=== PATIENT | male | born 1980 | race Caucasian/White ===

== ENCOUNTER 2016-10-22 11:09 | Inpatient (IN) | payer BC ==
[~2016-10-22] VITALS: Ht 188 cm; Wt 131.5 kg
--- NOTE | 2016-10-22 11:20 | NUR ---
PT C/O "FLU" SYMPTOMS. PT PRESENTS PROFUSELY DIAPHORETIC AND REPORTS HEADACHE, GENERALIZED BODY ACHES, SOB, DIZZINESS WITH SYNCOPE, COUGH, VOMITING/DIARRHEA, AND INTERMITTENT FEVERS. PT REPORTS SYMPTOMS X1WK. PT IS AAOX4, FOLLWOS COMMANDS, ANSWERS QUESTIONS APPROPRIATELY. HOWEVER PT STS THAT HE IS HAVING A DIFFICULTY TIME ANSWERING QUESTIONS, STS THAT HE IS DISORIENTED AND THAT HIS BRAIN FEELS LIKE "MUSH". RESP EVEN AND UNLABORED, RA. LS CTA [place]. SPEAKING IN FULL SENTENSES. REPORTS COUGHING AND STS THAT HE UNABLE TO COUGH AT THIS TIME DUE SKIP HEADACHE. PT ALSO REPORTS SYNCOPE FOR < 1 SEC WHEN COUGHING HARD. PT ALSO REPORTS DIZZINESS. PT REPORTS INTTERMITTENT FEVERS WITH HIGHEST BEING 102. PT REPORTS VOMITING X1 AND DIARRHEA X3/DAY FOR 1 WK. PT DENIES CHEST PAIN, DENIES ABD PAIN. PT ALSO REPORTS SWEATING BEGAN TODAY AFTER TAKING IBUPROFEN
--- NOTE | 2016-10-22 11:24 | NUR ---
DR SANZ AT BEDSIDE FOR MSE
--- NOTE | 2016-10-22 11:30 | NUR ---
EMT AT BEDSIDE FOR EKG\
--- NOTE | 2016-10-22 11:32 | NUR ---
SIZING MACHINE AND DRIER OPERATOR AT BEDSIDE FOR BLOOD DRAW
[2016-10-22 11:46] LABS: BASOPHIL % 0.6 % (0-2); PLATELET COUNT 212 x10^3mcL (130-400); RED CELL DISTRIBUTION WIDTH 13.7 % (11.5-14.5)
--- NOTE | 2016-10-22 12:00 | NUR ---
PT BRIANA VALDERRAMA FOR CT SCAN
[2016-10-22 12:05] LABS: ALBUMIN 3.4 g/dL (3.4-5.0); ALKALINE PHOSPHATASE 96 U/L (46-116); ALT/SGPT 81 U/L (16-63); AST/SGOT 45 U/L (15-37); BILIRUBIN TOTAL 0.8 mg/dL (0.20-1.00); CALCIUM 8.8 mg/dL (8.5-10.1); CARBON DIOXIDE 29.3 mmol/L (21-32); CHLORIDE SERUM 100 mmol/L (98-107); CREATININE SERUM 1.3 mg/dL (0.7-1.3); GFR1 > 60 mL/min; GLUCOSE SERUM 109 mg/dL (74-106); POTASSIUM SERUM 3.2 mmol/L (3.5-5.1); SODIUM SERUM 137 mmol/L (136-145); TOTAL PROTEIN, SERUM 7.8 g/dL (6.4-8.2)
--- NOTE | 2016-10-22 12:07 | NUR ---
RADIOLOGY AT BEDSIDE FOR PCXR
--- NOTE | 2016-10-22 12:41 | NUR ---
DR SANZ AT BEDSIDE DICUSSING PERFORMING A LUMBAR PUNCTURE. PT AGREEABLE AND GIVES VERBAL CONSENT. DR SANZ INFORMS PT ABOUT PROCEDURE AND INCLUDING POSSIBLE RISK AND CONSEQUENCES, AND BENIFITS AND PURPOSE OF PROCEDURE. PT AGREEABLE AND VERBALIZES UNDERSTANDING
--- NOTE | 2016-10-22 12:48 | NUR ---
DR SANZ AT [facility] FOR LUNBAR PUNCTURE
--- NOTE | 2016-10-22 12:48 | NUR ---
PT SIGNED CONSENT FOR LUNBAR PUNCTURE
[2016-10-22 13:29] LABS: TOTAL PROTEIN CSF 26.7 mg/dL (15-45)
--- NOTE | 2016-10-22 13:50 | NUR ---
PT MADE AWARE THAT HE NEEDS TO PROVIDE URINE SAMPLE BEFORE DX, PT VERBALIZED UNDERSTANDING.
[2016-10-22 14:05] LABS: COLOR CSF COLORLESS
[2016-10-22 14:06] LABS: APPEARANCE CSF CLEAR; RBC CSF 2 /cumm (0); WBC CSF 11 /cumm (0-5)
[2016-10-22 14:07] LABS: APPEARANCE CSF CLEAR; COLOR CSF COLORLESS; RBC CSF 2 /cumm (0); WBC CSF 2 /cumm (0-5)
--- NOTE | 2016-10-22 14:20 | NUR ---
DR SANZ AT BEDSIDE TO DISCUSS PLAN OF CARE.
--- NOTE | 2016-10-22 15:28 | NUR ---
REPORT GIVE TO SOPHIA DRIVER IN [facility] FOR CONTINUITY OF CARE
--- NOTE | 2016-10-22 15:41 | NUR ---
PT STS THAT HE COLD. ORAL TEMP CHECKED, 99.0. WARM BLANKET GIVEN. VS STABLE. DR SANZ MADE AWARE OF PT FEELING COLD
--- NOTE | 2016-10-22 15:43 | NUR ---
AWAITING ADMISSION ORDERS
--- NOTE | 2016-10-22 16:00 | NUR ---
RECEIVED PT FROM ED VIA [employer], PT IS AAOX4. C/O 10/10 HEADACHE AND DIZZINESS. C/O STIFF NECK, BUT PT IS ABLE TO MOVE HEAD FROM SIDE TO SIDE. C/O LIGHT SENSITIVITY. C/O 10/10 CHEST PAIN, ABDOMINAL PAIN AND GENERALIZED BODY PAIN DESCRIBED ACHING, STATED THAT THE COLD MAKES THE PAIN WORSE. NOTED PT HAS BODY SHIVERING. C/O NAUSEA AND STATED THAT HE HAD DIARRHEAL EPISODE YESTERDAY. C/O POOR APPETITE FOR 1 WEEK, SORE TONGUE, THROAT AND EYES. NO REDNESS ON THE EYES NOTED. FVJT=511.7, DR. MEEK AT BEDSIDE AND WAS MADE AWARE. SIDE RAILS UPX2. CALL LIGHT ON REACH. PRIMARY NURSE SOPHIA AT BEDSIDE
[2016-10-22 16:28] VITALS: BP 158/94
--- NOTE | 2016-10-22 16:33 | NUR ---
PT WITH TEMP 102.7 AND C/O GEN BODY SORENESS, GIVEN TORADOL ORDERED. PT REFUSED ICE PACKS FOR COOLING MEASURES, GIVEN ICE CHIPS AND COLD WATER. DR. MEEK AT BEDSIDE AND AWARE. WILL CONTINUE TO MONITOR.
[2016-10-22 16:34] VITALS: Ht 188 cm; Wt 131.5 kg
[2016-10-22 16:59] LABS: PHOSPHOROUS 3.1 mg/dL (2.5-4.9)
[2016-10-22 17:00] LABS: CHOLESTEROL/HDL RATIO 7.3
[2016-10-22 17:01] LABS: T3 TOTAL 1.17 ng/mL
[2016-10-22 17:05] LABS: FREE T4 1.21 ng/dL (0.76-1.46); FREE THYROXINE INDEX 3.2 ug/dL (1.4-4.5); T4(THYROXINE) 10.1 ug/dL (4.7-13.3)
--- NOTE | 2016-10-22 18:51 | NUR ---
PT RESTING COMFORTABLY IN BED WITH EYES CLOSED. NO ACUTE DISTRESS NOTED. COOLING MEASURES FOR ELEVATED TEMPERATURE. SEIZURE PRECAUTIONS IN PLACE. NO PAIN NOTED AT THIS TIME. IVF INFUSING. PLACED ON DROPLET PRECAUTIONS. BED IN LOWEST POSITION. CALL LIGHT WITHIN REACH. WILL ENDORSE TO ONCOMING SHIFT.
--- NOTE | 2016-10-22 20:03 | NUR ---
RECEIVED PT FROM AM NURSE IN NO ACUTE DISTRESS. A/OX4. C/O STIFF NECK AND LIGHT SENSITIVITY. TELE #5 ST. DENIES CHEST PAIN OR DISCOMFORT. PULSES PALPABLE AND EVEN. NO EDEMA NOTED. LUNGS CLEAR ON RA. BS ACTIVE X4 QUADRANTS. REPORTS LOOSE STOOL. VOIDS FREELY. GENERALIZED WEAKNESS, SHIVERING NOTED. ABRASION TO BRIDGE OF NOSE, PROFESSOR OF FINANCE. C/O GENERALIZED SORENESS, WILL MEDICATE PER EMAR. IV INTACT AND PATENT TO L HAND. BED IN LOWEST POSITION. CALL LIGHT INSTRUCTIONS REINFORCED. WILL CONT TO MONITOR.
[2016-10-22 20:42] VITALS: BP 111/75
[2016-10-22 21:48] LABS: UA SPECIFIC GRAVITY >=1.030 (1.005-1.035); microscopic required? YES; urine erythrocyte NEGATIVE (NEGATIVE)
[2016-10-22 21:59] LABS: AMPHETAMINE QUAL UR POSITIVE (NEG <=1000)
--- NOTE | 2016-10-23 01:00 | NUR ---
LAYING IN BED, NO ACUTE DISTRESS, BED IN LOWEST POSITION, CALL LIGHT WITHIN REACH, WILL CONT TO MONITOR.
--- NOTE | 2016-10-23 05:05 | NUR ---
SLEPT PERIODICALLY THROUGHOUT SHIFT. ALL NEEDS MET AND ATTENDED TO. IV INTACT AND PATENT. SEIZURE PRECAUTION. BED IN LOWEST POSITION, CALL LIGHT WITHIN REACH, WILL CONT TO MONITOR AND ENDORSE ALL CARE TO ONCOMING NURSE.
[2016-10-23 05:32] VITALS: BP 114/86
[2016-10-23 06:49] LABS: CALCIUM 8.6 mg/dL (8.5-10.1); CARBON DIOXIDE 27.3 mmol/L (21-32); CHLORIDE SERUM 100 mmol/L (98-107); CREATININE SERUM 0.9 mg/dL (0.7-1.3); GFR1 > 60 mL/min; GLUCOSE SERUM 147 mg/dL (74-106); MAGNESIUM 2.3 mg/dL (1.8-2.4); PHOSPHOROUS 3.9 mg/dL (2.5-4.9); POTASSIUM SERUM 4.2 mmol/L (3.5-5.1); SODIUM SERUM 141 mmol/L (136-145)
--- NOTE | 2016-10-23 07:16 | NUR ---
RECEIVED PT IN NO ACUTE DISTRESS. RESTING COMFORTABLY IN BED, NO PAIN NOTED. SEIZURE PRECAUTIONS IN PLACE. IVF INFUSING. BED IN LOWEST POSITION, CALL LIGHT WITHIN REACH. WILL CONTINUE TO MONITOR.
[2016-10-23 07:51] LABS: BASOPHIL % 0.1 % (0-2); PLATELET COUNT 208 x10^3mcL (130-400); RED CELL DISTRIBUTION WIDTH 13.5 % (11.5-14.5)
[2016-10-23 09:04] VITALS: BP 106/74
--- NOTE | 2016-10-23 13:08 | NUR ---
PT SITTING UP IN BED. NO ACUTE DISTRESS. C/O MILD LIGHT SENSITIVITY, PT WEARING EYEGLASSES. DENIES CRAIG, DIZZINESS, OR NECK STIFFNESS. IVF INFUSING. BED IN LOWEST POSITION, CALL LIGHT WITHIN REACH. WILL CONTINUE TO MONITOR.
--- NOTE | 2016-10-23 18:21 | NUR ---
PT RESTING IN BED. NO ACUTE DISTRESS. DENIES CRAIG, DIZZINESS OR NECK STIFFNESS. C/O MILD LIGHT SENSITIVITY. RESP EVEN AND UNLABORED ON RA. NO SOB NOTED. BED IN LOWEST POSITION, CALL LIGHT WITHIN REACH. WILL ENDORSE TO INCOMING SHIFT.
--- NOTE | 2016-10-23 19:48 | NUR ---
RECEIVED PT FROM PREVIOUS SHIFT NURSE. PT AOX4. MED SURG PT. PULSES GOOD, NO EDEMA NOTED. LUNG SOUNDS CLEAR, ON RA. BOWEL SOUNDS ACTIVE. VOIDS FREELY. GENERALIZED WEAKNESS. ABRASION ON BRIDGE OF NOSE. IV IN L. HAND, INTACT AND PATENT. BED IN LOWEST POSITION. CALL LIGHT WITHIN REACH. WILL CONTINUE TO MONITOR.
[2016-10-23 21:15] VITALS: BP 103/64
--- NOTE | 2016-10-24 03:00 | NUR ---
PT RESTING IN BED. RR EVEN AND UNLABORED NO ACUTE DISTRESS NOTED. BED IN LOWEST POSITION. CALL LIGHT WITHIN REACH. WILL CONTINUE TO MONITOR.
[2016-10-24 05:56] VITALS: BP 140/80
[2016-10-24 06:37] LABS: PLATELET COUNT 258 x10^3mcL (130-400); RED CELL DISTRIBUTION WIDTH 13.6 % (11.5-14.5)
[2016-10-24 06:55] LABS: BASOPHIL % 0 % (0-2)
[2016-10-24 07:28] LABS: ALKALINE PHOSPHATASE 85 U/L (46-116); ALT/SGPT 92 U/L (16-63); AST/SGOT 35 U/L (15-37); BILIRUBIN TOTAL 0.23 mg/dL (0.20-1.00); CALCIUM 8.7 mg/dL (8.5-10.1); CARBON DIOXIDE 23.4 mmol/L (21-32); CHLORIDE SERUM 104 mmol/L (98-107); CREATININE SERUM 0.8 mg/dL (0.7-1.3); GFR1 > 60 mL/min; GLUCOSE SERUM 150 mg/dL (74-106); PHOSPHOROUS 3.5 mg/dL (2.5-4.9); POTASSIUM SERUM 4.3 mmol/L (3.5-5.1); SODIUM SERUM 137 mmol/L (136-145); TOTAL PROTEIN, SERUM 6.4 g/dL (6.4-8.2)
[2016-10-24 07:29] LABS: ALBUMIN 2.5 g/dL (3.4-5.0)
--- NOTE | 2016-10-24 07:42 | NUR ---
PT IS ON DROPLET ISOLATION. PT IS AWAKE, SENSITIVE TO LIGHT. PT NO COMPLAIN OF DISCOMFORT AT THIS TIME. PT BREATHING ON RA, EVEN, UNLABORED. IV SITE PATENT, INTACT. IVF INFUSING WELL.
[2016-10-24 09:32] VITALS: BP 117/72
[2016-10-24] MEDS ORDERED: ATI1 PO (11:52)
[2016-10-24] MEDS ORDERED: NOR10T PO (11:53)
[2016-10-24] MEDS ORDERED: COLACE100 MG PO (11:54)
[2016-10-24] MEDS ORDERED: TOR10 PO (11:54)
[2016-10-24] MEDS ORDERED: ROBAXIN-750750 MG PO (11:55)
[2016-10-24 12:27] VITALS: BP 117/72
[2016-10-24 12:48] VITALS: BP 132/96
--- NOTE | 2016-10-24 14:08 | NUR ---
PT IS READY TO BE DISCHARGE. ALL DISCHARGE INSTRUCTION GIVEN. PT IS WAITING FOR HIS DAD TO PICK HIM UP.
== END 2016-10-24 15:55 | disposition home or self-care (01) | DRG 75 ==
LOC: ED 11:09 → MU 14:28 → DU 14:28 → MU 10-23 17:57
PROVIDERS: Emergency Medicine; ADMIT Family Medicine
PROC: 009U3ZX Drainage of Spinal Canal, Percutaneous Approach, Diagnostic (ICD-10-PCS; principal; 2016-10-22)
DX: A87.9 Viral meningitis, unspecified (principal); N17.0 Acute kidney failure with tubular necrosis; R65.10 Systemic inflammatory response syndrome (SIRS) of non-infectious origin without acute organ dysfunction; K21.9 Gastro-esophageal reflux disease without esophagitis; F15.10 Other stimulant abuse, uncomplicated; F11.10 Opioid abuse, uncomplicated; I10 Essential (primary) hypertension; R80.9 Proteinuria, unspecified; R74.0 Nonspecific elevation of levels of transaminase and lactic acid dehydrogenase [LDH]; Z53.29 Procedure and treatment not carried out because of patient's decision for other reasons; R73.03 Prediabetes; E66.9 Obesity, unspecified; Z68.37 Body mass index [BMI] 37.0-37.9, adult; Z90.49 Acquired absence of other specified parts of digestive tract
CPT/HCPCS: 80307; 83880; 84439; 86788; 86789; 87046; 87046-59; G0480; J0696; J1100; J1885; J2060; J2270; J2765; J7030; Q0092

== ENCOUNTER 2016-10-28 05:08 | Emergency (ER) | payer BC ==
[~2016-10-28 05:08] MED LIST: ATI1 PO; COLACE100 MG PO; NOR10T PO; ROBAXIN-750750 MG PO; TOR10 PO
[2016-10-28 06:29] LABS: BASOPHIL % 1.1 % (0-2); PLATELET COUNT 310 x10^3mcL (130-400); RED CELL DISTRIBUTION WIDTH 14.1 % (11.5-14.5)
[2016-10-28 06:34] LABS: CALCIUM 8.2 mg/dL (8.5-10.1); CARBON DIOXIDE 28.8 mmol/L (21-32); CHLORIDE SERUM 97 mmol/L (98-107); CREATININE SERUM 1.2 mg/dL (0.7-1.3); GFR1 > 60 mL/min; GLUCOSE SERUM 110 mg/dL (74-106); POTASSIUM SERUM 3.9 mmol/L (3.5-5.1); SODIUM SERUM 131 mmol/L (136-145)
[2016-10-28 06:39] LABS: ALKALINE PHOSPHATASE 106 U/L (46-116); ALT/SGPT 147 U/L (16-63); AST/SGOT 63 U/L (15-37); BILIRUBIN TOTAL 0.7 mg/dL (0.20-1.00); LIPASE 201 IU/L (73-393); TOTAL PROTEIN, SERUM 6.9 g/dL (6.4-8.2)
[2016-10-28 06:43] LABS: ALBUMIN 2.7 g/dL (3.4-5.0)
[2016-10-28 07:08] VITALS: BP 141/90
== END 2016-10-28 07:08 | disposition home or self-care (01) ==
LOC: ED 05:08
PROVIDERS: Emergency Medicine
DX: A87.9 Viral meningitis, unspecified (principal); R03.0 Elevated blood-pressure reading, without diagnosis of hypertension; F15.90 Other stimulant use, unspecified, uncomplicated
CPT/HCPCS: 87804; Q0092